=== PATIENT | female | born 1980 | race Two or more races ===

== ENCOUNTER 2025-11-02 08:28 | Emergency (ER) | payer MEDICAID, SELFPAY ==
[2025-11-02 08:29] VITALS: BMI 35.2
[2025-11-02 08:35] VITALS: BP 159/102; PULSE 99; RESP 18; TEMP 37; O2SAT 96
--- NOTE | 2025-11-02 08:42 | XR_ITS ---
November 02, 2025, 0847 hours, comparison June 19, 2017 INDICATIONS: Chest pain beginning 4 days ago. FINDINGS: Suspicious for early right basilar pneumonia Normal heart size Mild thoracic dextroscoliosis IMPRESSION: Suspicious for early right base pneumonia
--- NOTE | 2025-11-02 08:45 | PD.EDURI ---
Upper Respiratory Inf. RME/HPI General Chief Complaint: Flu Like Symptoms Stated Complaint: COUGH & SORE THROAT X1WK, L UPPER BACK PAINX3 DAYS Time Seen by Provider: 11/02/25 08:44 Source: patient Arrival date/time: 11/02/25 08:28 45-year-old female with a history of hypertension, hyperlipidemia, hypothyroidism, presents to the emergency room with a chief complaint of left-sided thoracic back pain and a cough x 1 week Mode of arrival: ambulatory Limitations: no limitations Related Data Home Medications ?Medication ?Instructions ?Recorded ?Confirmed lamotrigine 200 mg disintegrating 200 mg PO DAILY 08/27/18 08/24/24 tablet amlodipine 2.5 mg tablet 2.5 mg PO QDAY 08/24/24 08/24/24 atorvastatin 20 mg tablet 20 mg PO QDAY 08/24/24 08/24/24 clonazepam 0.5 mg tablet 0.25 mg PO BID 08/24/24 08/24/24 ergocalciferol (vitamin D2) 1,250 1,250 mcg PO QWEEK 08/24/24 08/24/24 mcg (50,000 unit) capsule (Vitamin D2) levetiracetam 750 mg tablet 750 mg PO BID 08/24/24 08/24/24 meloxicam 15 mg tablet 15 mg PO QDAY 08/24/24 08/24/24 metformin 1,000 mg tablet 1,000 mg PO BID 08/24/24 08/24/24 semaglutide 1 mg/dose (4 mg/3 mL) 1 mg subcut QWEEK 08/24/24 08/24/24 subcutaneous pen injector (Ozempic) Previous Rx's ?Medication ?Instructions ?Recorded albuterol sulfate 90 mcg/actuation 2 puff inhalation Q6H PRN 11/02/25 aerosol inhaler (Ventolin HFA) shortness of breath or wheezing #6.7 grams amoxicillin 875 mg-potassium 1 tab PO BID 7 days #14 tabs 11/02/25 clavulanate 125 mg tablet Allergies Allergy/AdvReac Type Severity Reaction Status Date / Time No Known Allergies Allergy Verified 11/02/25 08:31 Review of Systems Review of Systems Systems Reviewed: All systems reviewed, normal except as documented Constitutional Constitutional: Reports system reviewed and no additional complaints, except as documented, Denies fatigue, Denies fever(s), Denies headache(s) and Denies weakness Eyes Eyes: Reports system reviewed and no additional complaints, except as documented, Denies blurry vision and Denies change in vision ENT Ears, Nose, Mouth, and Throat: Reports system reviewed and no additional complaints, except as documented, Denies otalgia, Denies headache(s), Denies nasal congestion, Denies throat swelling and Denies vertigo Cardiovascular Cardiovascular: Reports system reviewed and no additional complaints, except as documented, Denies chest pain, Reports dyspnea and Denies dyspnea on exertion Respiratory Respiratory: Reports system reviewed and no additional complaints, except as documented, Denies chest congestion, Reports cough, Reports dyspnea, Denies dyspnea on exertion and Denies wheezing Gastrointestinal Gastrointestinal: Reports system reviewed and no additional complaints, except as documented, Denies abdominal pain, Denies cramping, Denies nausea and Denies vomiting Genitourinary Genitourinary: Reports system reviewed and no additional complaints, except as documented Musculoskeletal Musculoskeletal: Reports system reviewed and no additional complaints, except as documented and Denies back pain Integumentary/Breasts Skin/Breast: Reports system reviewed and no additional complaints, except as documented and Denies wounds Neurologic Neurologic: Reports system reviewed and no additional complaints, except as documented, Denies confusion, Denies headache(s), Denies lack of coordination, Denies vertigo and Denies weakness Psychiatric Psychiatric: Reports system reviewed and no additional complaints, except as documented, Denies anxiety, Denies confusion, Denies depression, Denies paranoia, Denies suicidal ideation and Denies tactile hallucinations Endocrine Endocrine: Reports system reviewed and no additional complaints, except as documented and Denies fatigue Hematologic/Lymphatic Hematologic/Lymphatic: Reports system reviewed and no additional complaints, except as documented and Denies lymphadenopathy Allergic/Immunologic Allergic/Immunologic: Reports system reviewed and no additional complaints, except as documented, Denies throat swelling, Denies urticaria and Denies wheezing Past Medical History Past Medical History NEUROLOGIC: Positive Neurological Disorders, Seizures and Epilepsy (medicated, last seizure 1 week ago) CARDIAC: Positive Cardiac Disorders (states has been having chest pressure, last a month ago), Hypercholesterolemia and Hypertension; Negative Congestive Heart Failure RESPIRATORY: Negative Chronic Obstructive Pulmonary Disease (COPD) or Tuberculosis GASTROINTESTINAL: Negative Gastrointestinal Disorders GENITOURINARY: Negative Genitourinary Disorders or Renal Disease REPRODUCTIVE: Positive Previous Pregnancies; Negative Breast Cancer MUSCULOSKELETAL: Negative Musculoskeletal Disorders or Bone Cancer ENDOCRINE: Positive Endocrine Disorders and Diabetes Mellitus Type 2; Negative Diabetes Mellitus Type 1 HEMATOLOGIC: Negative Blood Disorders PSYCHO/SOCIAL: Positive Depression and Anxiety OTHER HISTORY: Positive Shingles and Chicken Pox; Negative Hospitalization, Autoimmune Disease, Blood Transfusions, Blood Transfusion Reaction, Anesthesia Reactions, Cancer, Breast Cancer or Cervical Cancer Family History FAMILY HISTORY: Positive Family Cardiac Disorders and Family Cancer; Negative Family Psychiatric Problems, Family Respiratory Disorders, Family Gastrointestinal Problems, Family Surgery or Family Anesthesia Reaction Surgical History SURGICAL: Positive Tubal Ligation and Section (x2) Social History SMOKING STATUS: Never smoker SECOND HAND EXPOSURE: No ED Exam General Limitations: Present no limitations General appearance: Present alert and in no apparent distress Head Head exam: Present atraumatic Eye Eye exam: Present normal appearance, PERRL and EOMI ENT ENT exam: Present normal exam, normal oropharynx and mucous membranes moist Neck Neck exam: Present normal inspection, full ROM and trachea midline Chest Chest inspection: Present normal inspection and symmetric chest wall rise Respiratory Respiratory exam: Present normal lung sounds bilaterally; Absent respiratory distress, wheezes, stridor, accessory muscle use or prolonged expiratory phase Cardiovascular Cardiovascular exam: Present regular rate, normal rhythm and normal heart sounds Abdominal Exam Abdominal exam: Present soft and normal bowel sounds Extremities Exam Extremities exam: Present normal inspection and full ROM Back Exam Back exam: Present normal inspection and full ROM Neurological Exam Neurological exam: Present alert, oriented X3 and CN II-XII intact Psychiatric Psychiatric exam: Present normal affect and normal mood Skin Skin exam: Present warm, dry, intact and normal color Course Quality Measures none Orders Category Date Time Status XR chest 1V portable Stat Exams 11/02/25 08:42 Completed Vital Signs Vital signs: Vital Signs Temperature 98.6 F 11/02/25 08:35 Pulse Rate 99 11/02/25 08:35 Respiratory Rate 18 11/02/25 08:35 Blood Pressure 159/102 H 11/02/25 08:35 Pulse Oximetry (%) 96 11/02/25 08:35 Oxygen Delivery Method Room Air 11/02/25 08:35 Upper Respiratory Infection MDM Narrative MDM Narrative:: 45-year-old female with a history of hypertension, hyperlipidemia, hypothyroidism, presents to the emergency room with a chief complaint of left-sided thoracic back pain and a cough x 1 week Patient is hemodynamically stable and in no apparent distress. Patient is not tachypneic not tachycardic and afebrile. Her O2 saturation is 96% on room air Physical examination shows clear bilateral lung sounds. The patient is having some left-sided thoracic pain that radiates to the ribs X-ray was completed of the chest and showed early pneumonia Antibiotics are sent to the patient's pharmacy Patient was discharged and educated to follow-up with primary care provider in the next 24 to 48 hours and return to the emergency room for any evidence of worsening signs or symptoms Patient data External records reviewed:: [facility] previous records Clinical information provided by:: patient Social determinants that could affect healthcare access:: none Patient has the following chronic illnesses:: No chronic illness How is presenting disease/condition affected by chronic disease/condition?: no chronic disease Evaluation data The following diagnostics were reviewed and interpreted by me:: lab results and radiology exam(s) Lab and/or radiology exams considered but not ordered:: Labs and radiology exams considered and ordered Interpretation Summary: Chest [id number]: Suspicious for early right basilar pneumonia Normal heart size Mild thoracic dextroscoliosis IMPRESSION: Suspicious for early right base pneumonia Medications / Prescriptions Medications or Prescriptions considered but not ordered:: Rx given Medication administrations:: Rx given Consultations Consultation(s) initiated? (list below): No Diagnosis Upper Respiratory Differential Diagnosis: upper respiratory infection, viral infection, influenza and other (Community-acquired pneumonia) Most likely diagnosis given after review of the tests above:: Community-acquired pneumonia Admission Indicated Admission indicated?: not indicated Admission Request Was there a request for admission?: No Disposition Plan Disposition Plan: Discharge Discharge Attestation Discharge Attestation: The patient and all family members were given an opportunity to ask questions and understood the discharge instructions. Discharge instructions specifically effects, indications for sooner follow up or return to the emergency department, and the expected course of current diagnosis. Patient condition: Stable Discharge Plan Plan Patient Disposition: HOME (Self Care) Discharge Disposition comment: Stable Prescriptions/Referrals Prescriptions/Med Rec: New albuterol sulfate [Ventolin HFA] 90 mcg/actuation HFA aerosol inhaler 2 puff inhalation Q6H PRN (Reason: shortness of breath or wheezing) Qty: 6.7 0RF amoxicillin-pot clavulanate 875-125 mg tablet 1 tab PO BID 7 Days Qty: 14 0RF No Action lamotrigine 200 mg Tablet,Disintegrating 200 mg PO DAILY atorvastatin 20 mg Tablet 20 mg PO QDAY meloxicam 15 mg Tablet 15 mg PO QDAY clonazepam 0.5 mg Tablet 0.25 mg PO BID amlodipine 2.5 mg Tablet 2.5 mg PO QDAY metformin 1,000 mg Tablet 1,000 mg PO BID levetiracetam 750 mg Tablet 750 mg PO BID ergocalciferol (vitamin D2) [Vitamin D2] 1,250 mcg (50,000 unit) Capsule 1,250 mcg PO QWEEK Ozempic 1 mg/dose (4 mg/3 mL) Pen Injector 1 mg SUBCUT QWEEK Referrals: Leny Art PA-C [Primary Care Provider, Family Practice] - In 1 week Problem List Clinical Impression: Community acquired pneumonia Patient/Caregiver Discharge Instructions Education Materials: What Is Pneumonia?, Treating Pneumonia, ED Pneumonia (Adult) Additional Instructions: Please follow-up with your primary care provider in the next 24 to 48 hours Your x-ray showed early pneumonia Antibiotics are sent to your pharmacy please pick them up and take them as indicated For any evidence of worsening signs or symptoms return to the emergency room immediately Print Language: Uzbek Stand Alone Forms: [facility] Award Info., Patient Portal Info Letter
== END 2025-11-02 10:33 | disposition home or self-care (01) ==
PROVIDERS: Emergency Provider Nurse Practitioner Family; PCP Physician Assistant
DX: J18.9 Pneumonia, unspecified organism (principal)
CPT/HCPCS: 71045; 99282

== ENCOUNTER 2025-11-25 12:26 | Emergency (ER) | payer MEDICAID, SELFPAY ==
--- NOTE | 2025-11-25 12:37 | EKG_ITS ---
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
[2025-11-25 13:05] VITALS: BP 148/91; PULSE 95; RESP 18; TEMP 36.8; O2SAT 99; BMI 32.8
--- NOTE | 2025-11-25 13:06 | XR_ITS ---
EXAMINATION: PA chest single view TECHNIQUE: Upright PA chest single view Date and time: November 25, 2025, 1317 hours, comparison November 02, 2025 INDICATIONS: Chest pain right-sided back pain beginning 5 days ago. FINDINGS: Mild prominence left ventricle Suspicious for mild pneumonia medial right base No pulmonary edema. Osseous structures are intact IMPRESSION: Suspicious for early right base pneumonia
--- NOTE | 2025-11-25 13:07 | PD.EDCHEST ---
ED Chest Pain RME/HPI General Chief Complaint: Chest Pain Stated Complaint: RIGHT SIDED BACK PAIN, CHEST PAIN X5 DAYS Time Seen by Provider: 11/25/25 13:02 Arrival date/time: 11/25/25 12:26 This is a 45-year-old female who comes into the emergency room with complaints of chest pain and shortness of breath for the past 5 days. Patient states she was recently diagnosed with pneumonia to the left side and does not know if the chest pain is worsening pneumonia or if it something else. Patient has a history of seizures, high blood pressure, hyperlipidemia, anxiety, diabetes. Patient denies fever or chills. Patient states that she has a cough sometimes. Patient denies sick contacts at home. Related Data Home Medications ?Medication ?Instructions ?Recorded ?Confirmed lamotrigine 200 mg disintegrating 200 mg PO DAILY 08/27/18 08/24/24 tablet amlodipine 2.5 mg tablet 2.5 mg PO QDAY 08/24/24 08/24/24 atorvastatin 20 mg tablet 20 mg PO QDAY 08/24/24 08/24/24 clonazepam 0.5 mg tablet 0.25 mg PO BID 08/24/24 08/24/24 ergocalciferol (vitamin D2) 1,250 1,250 mcg PO QWEEK 08/24/24 08/24/24 mcg (50,000 unit) capsule (Vitamin D2) levetiracetam 750 mg tablet 750 mg PO BID 08/24/24 08/24/24 meloxicam 15 mg tablet 15 mg PO QDAY 08/24/24 08/24/24 metformin 1,000 mg tablet 1,000 mg PO BID 08/24/24 08/24/24 semaglutide 1 mg/dose (4 mg/3 mL) 1 mg subcut QWEEK 08/24/24 08/24/24 subcutaneous pen injector (Ozempic) Previous Rx's ?Medication ?Instructions ?Recorded albuterol sulfate 90 mcg/actuation 2 puff inhalation Q6H PRN 11/02/25 aerosol inhaler (Ventolin HFA) shortness of breath or wheezing #6.7 grams Allergies Allergy/AdvReac Type Severity Reaction Status Date / Time No Known Allergies Allergy Verified 11/25/25 12:30 Review of Systems Review of Systems Systems Reviewed: All systems reviewed, normal except as documented Past Medical History Past Medical History NEUROLOGIC: Positive Neurological Disorders, Seizures and Epilepsy (medicated, last seizure 1 week ago) CARDIAC: Positive Cardiac Disorders (states has been having chest pressure, last a month ago), Hypercholesterolemia and Hypertension; Negative Congestive Heart Failure RESPIRATORY: Negative Chronic Obstructive Pulmonary Disease (COPD) or Tuberculosis GASTROINTESTINAL: Negative Gastrointestinal Disorders GENITOURINARY: Negative Genitourinary Disorders or Renal Disease REPRODUCTIVE: Positive Previous Pregnancies; Negative Breast Cancer MUSCULOSKELETAL: Negative Musculoskeletal Disorders or Bone Cancer ENDOCRINE: Positive Endocrine Disorders and Diabetes Mellitus Type 2; Negative Diabetes Mellitus Type 1 HEMATOLOGIC: Negative Blood Disorders PSYCHO/SOCIAL: Positive Depression and Anxiety OTHER HISTORY: Positive Shingles and Chicken Pox; Negative Hospitalization, Autoimmune Disease, Blood Transfusions, Blood Transfusion Reaction, Anesthesia Reactions, Cancer, Breast Cancer or Cervical Cancer Family History FAMILY HISTORY: Positive Family Cardiac Disorders and Family Cancer; Negative Family Psychiatric Problems, Family Respiratory Disorders, Family Gastrointestinal Problems, Family Surgery or Family Anesthesia Reaction Surgical History SURGICAL: Positive Tubal Ligation and Section (x2) Social History SMOKING STATUS: Never smoker SECOND HAND EXPOSURE: No ED Exam Narrative Physical exam: VITAL SIGNS: Reviewed. GENERAL APPEARANCE: Alert and interactive, follows commands, no acute distress HEAD AND FACE: Non-traumatic. ENT: PERRL, conjuctiva pink and clear, eyelid no trauma, Mucous membrane moist. NECK: Supple, nontender, no nuchal rigidity. CHEST: No tenderness, no crepitus, no paradoxical movement, no retractions. LUNGS: breathing even and unlabored HEART: Regular rate, cap refill less than 2 seconds ABDOMEN: Soft, nondistended, no guarding, nontender, no rebound, no masses, NEUROLOGICAL: Gross motor function intact sensory function intact, Appropriate for age. MUSCULOSKELETAL: low back nontender, full range of motion. no midline tenderness, no meningismus, no step offs EXTREMITIES: No redness no swelling no skin breakdown on bilateral foot and leg. Distal neurovascular status intact bilateral foot SKIN: Color pink, dry Course Quality Measures none Orders Category Date Time Status EKG (ED ONLY) *Do not use* NOW Care 11/25/25 12:37 Completed EKG (ED Only) Stat Exams 11/25/25 12:37 Draft XR chest 1V Stat Exams 11/25/25 13:06 Completed BNP [B-Type Natriuretic Peptide] Stat Lab 11/25/25 13:33 Completed CBC Stat Lab 11/25/25 13:33 Completed Comprehensive Metabolic Panel Stat Lab 12/28/25 13:33 Completed Troponin I Stat Lab 11/25/25 13:33 Completed Urinalysis, C/S if Indicated Stat Lab 11/25/25 13:30 Completed Urine Culture Stat Lab 11/25/25 13:30 Completed HYDROcodone*/APAP 5/325 [[place] 5/325] Med 11/25/25 17:21 Discontinued 1 tab PO X1 ONE Ibuprofen Tab [Motrin Tab] Med 11/25/25 17:18 Discontinued 800 mg PO X1 ONE Ondansetron Odt [Zofran Odt] Med 11/25/25 17:21 Discontinued 4 mg PO X1 ONE cefTRIAXone [Rocephin] 1,000 mg Med 11/25/25 17:18 Discontinued Lidocaine 1% Pf Vial 5ml [Xylocaine 1% Pf 5 ml] 2.1 ml IM X1 Vital Signs Vital signs: Vital Signs Temperature 98.3 F 11/25/25 13:05 Pulse Rate 95 11/25/25 13:05 Respiratory Rate 18 11/25/25 13:05 Blood Pressure 148/91 H 11/25/25 13:05 Pulse Oximetry (%) 99 11/25/25 13:05 Oxygen Delivery Method Room Air 11/25/25 13:05 PROCEDURES: EKG Interpretation #1: Date of EK11/25/25 Time of EK:09 Rate: 94 Interpretation: Interpreted by me ( Sinus rhythm with a right branch block. Patient previously noted bundle branch block.) EKG Impression: No ectopy and Normal intervals Chest Pain MDM Narrative MDM Narrative:: Labs reviewed WBC 6.8 hemoglobin hematocrit 12.1 and 39.5, mcv 74 BMP, with a glucose of 291 also LFTs within normal limits. Troponin negative BNP noted. Urine positive for leukocyte esterase and some WBCs of 21. Suspicious for possible UTI. Patient's x-ray shows Chest x ray: FINDINGS: Mild prominence left ventricle Suspicious for mild pneumonia medial right base No pulmonary edema. Osseous structures are intact IMPRESSION: Suspicious for early right base pneumonia Will treat patient with Rocephin. Will patient will be sent home with antibiotics to cover both. Patient told to come back to the emergency room symptoms change or worsen. Patient verbalized understanding dragon dictation: Although this document has been carefully reviewed, there may still be some phonetic and other typographical errors. These errors are purely grammatical due to imperfections in the software program and should not be construed in any way to compromise the substance of the patient's medical care during this visit. Patient data External records reviewed:: [facility] previous records Clinical information provided by:: patient Social determinants that could affect healthcare access:: none Patient has the following chronic illnesses:: See note How is presenting disease/condition affected by chronic disease/condition?: no chronic disease Evaluation data The following diagnostics were reviewed and interpreted by me:: lab results and radiology exam(s) Lab and/or radiology exams considered but not ordered:: None Interpretation Summary: See note Medications / Prescriptions Medications or Prescriptions considered but not ordered:: None Medication administrations:: Medication Administration History Discontinued Medications Hydrocodone Bitart/Acetaminophen (Hydrocodone/Apap 5/325 Tablet) 1 tab PO X1 ONE Stop: 11/25/25 17:22 Last Admin: 11/25/25 17:44 Dose: Not Given Documented By: OA Non-Admin Reason: Discontinued Ceftriaxone Sodium 1,000 mg/ (Lidocaine HCl 2.1 ml) 0 mg IM X1 ONE Stop: 11/25/25 17:19 Last Admin: 11/25/25 17:43 Dose: 2.1 mg Documented By: OA Ibuprofen (Ibuprofen Tab 400 Mg Tablet) 800 mg PO X1 ONE Stop: 11/25/25 17:19 Last Admin: 11/25/25 17:44 Dose: 800 mg Documented By: OA Ondansetron HCl (Ondansetron Odt 4 Mg Tabrap) 4 mg PO X1 ONE; Protocol Stop: 11/25/25 17:22 Last Admin: 11/25/25 17:44 Dose: Not Given Documented By: OA Non-Admin Reason: Discontinued See [facility] Consultations Consultation(s) initiated? (list below): No Diagnosis Chest Pain Differential Diagnosis: pneumothorax, atypical chest pain, chest pain and other (Pneumonia) Most likely diagnosis given after review of the tests above:: Pneumonia Admission Indicated Admission indicated?: not indicated Admission Request Was there a request for admission?: No Disposition Plan Disposition Plan: Discharge Discharge Attestation Discharge Attestation: The patient and all family members were given an opportunity to ask questions and understood the discharge instructions. Discharge instructions specifically effects, indications for sooner follow up or return to the emergency department, and the expected course of current diagnosis. Patient condition: Stable Discharge Plan Plan Patient Disposition: HOME (Self Care) Patient condition on transfer: Stable Prescriptions/Referrals Prescriptions/Med Rec: No Action lamotrigine 200 mg Tablet,Disintegrating 200 mg PO DAILY atorvastatin 20 mg Tablet 20 mg PO QDAY meloxicam 15 mg Tablet 15 mg PO QDAY clonazepam 0.5 mg Tablet 0.25 mg PO BID amlodipine 2.5 mg Tablet 2.5 mg PO QDAY metformin 1,000 mg Tablet 1,000 mg PO BID levetiracetam 750 mg Tablet 750 mg PO BID ergocalciferol (vitamin D2) [Vitamin D2] 1,250 mcg (50,000 unit) Capsule 1,250 mcg PO QWEEK Ozempic 1 mg/dose (4 mg/3 mL) Pen Injector 1 mg SUBCUT QWEEK albuterol sulfate [Ventolin HFA] 90 mcg/actuation HFA aerosol inhaler 2 puff inhalation Q6H PRN (Reason: shortness of breath or wheezing) Qty: 6.7 0RF Referrals: Leny Art PA-C [Primary Care Provider, Family Practice] - In 1 week Problem List Clinical Impression: UTI (urinary tract infection), Pneumonia Patient/Caregiver Discharge Instructions Discharge Activity: activity as tolerated Education Materials: ED Pneumonia (Adult), ED CYSTITIS Female Adult Additional Instructions: Follow up with primary provider in 1-2 days. Come back to ED if symptoms change or worsen Print Language: Lithuanian Stand Alone Forms: [employer] Award Info., Patient Portal Info Letter PA/PRANAY Supervising Physician PA/PRANAY Supervising Physician: [email or web address]
[2025-11-25 13:49] LABS: Basophils # (Auto) 0.0 Thou/mm3 (0.0-0.2); Basophils % (Auto) 0 % (0-2.5); Eosinophils # (Auto) 0.1 Thou/mm3 (0.0-0.5); Eosinophils % (Auto) 1 % (0-10); Hematocrit 39.5 % (36.0-46.0); Hemoglobin 12.1 g/dL (12.0-16.0); Immature Granulocytes Auto 0.02 Thou/mm3 (0.00-0.00); Lymphocytes # (Auto) 2.3 Thou/mm3 (1.0-4.8); Lymphocytes % (Auto) 34 % (10-50); Mean Corpuscular HGB Conc 30.6 g/dl (31.0-37.0); Mean Corpuscular Hemoglobin 22.7 pg (25.0-35.0); Mean Corpuscular Volume 74 fL (80-100); Monocytes # (Auto) 0.5 Thou/mm3 (0.0-0.8); Monocytes % (Auto) 7 % (0-12); Neutrophils # (Auto) 3.9 Thou/mm3 (1.8-7.7); Neutrophils % (Auto) 58 % (37-80); Nucleated Red Blood Cell # 0.00 Thou/mm3 (0.00-0.00); Nucleated Red Blood Cell % 0 /100 WBC (0); Platelet Count 228 Thou/mm3 (140-440); RDW Standard Deviation 41.3 fL (36.4-46.3); Red Blood Count 5.33 Miln/mm3 (4.00-5.20); White Blood Count 6.8 Thou/mm3 (3.6-11.0)
[2025-11-25 14:04] LABS: Collection Type, Urine Voided
[2025-11-25 14:08] LABS: B-Type Natriuretic Peptide < 20 pg/mL (0-100)
[2025-11-25 14:21] LABS: Alanine Aminotransferase 8 U/L (10-49); Albumin, Serum 4.5 gm/dL (3.5-5.0); Albumin/Globulin Ratio 1.4 (1.2-2.2); Alkaline Phosphatase 90 U/L (46-116); Anion Gap 11 (7-16); Aspartate Amino Transferase 14 U/L (0-34); BUN/Creatinine Ratio 8 Ratio (12-20); Bilirubin,Total 0.4 mg/dL (0.3-1.2); Blood Urea Nitrogen 6 mg/dL (9-23); Calcium 9.2 mg/dL (8.3-10.6); Calcium (Corrected) 9.2 mg/dL (8.5-10.1); Carbon Dioxide 27.7 mMol/L (20.0-31.0); Chloride 99 mMol/L (98-107); Creatinine (Component) 0.8 mg/dL (0.6-1.3); Estimated Creatinine Clearance 106.4 mL/min (>60); Globulin 3.3 gm/dL (2.3-3.5); Glucose 291 mg/dL (74-106); Osmolality,Calculated 284 (275-295); Potassium 3.7 mMol/L (3.4-5.1); Sodium 138 mMol/L (136-145); Total Protein 7.8 gm/dL (5.7-8.2); Troponin I < 0.002 ng/mL (0.0-0.045); eGFR > 60 See Note
[2025-11-25 14:47] LABS: Bacteria,Urine Rare; Bilirubin,Urine Negative (Negative); Blood,Urine Negative (Negative); Clarity,Urine Clear (Clear/Hazy); Color,Urine Colorless (Lt Yel-Yel); Glucose, Urine 4+ (Negative); Ketones,Urine Negative (Negative); Leukocyte Esterase,Urine Positive (Negative); Nitrite,Urine Negative (Negative); PH,Urine 6.5 (5.0-7.0); Protein,Urine Negative (Neg - Trace); RBC,Urine < 1 /hpf (0-3); Specific Gravity,Urine 1.015 (1.001-1.035); Squamous Epithelial Cell,Urine 5 /hpf (0-5); Transitional Epi Cells,Urine < 1 /hpf (0-5); Urobilinogen,Urine Negative mg/dL (0.0-1.0); WBC,Urine 21 /hpf (0-5)
[2025-11-25 14:50] LABS: Culture Indicated,Urine Yes
[2025-11-25] MEDS: IBUPROFEN TAB 400 MG TABLET 800 MG PO (17:44)
== END 2025-11-25 17:45 | disposition home or self-care (01) ==
PROVIDERS: Nurse Practitioner Family; Emergency Provider Emergency Medicine; PCP Physician Assistant
DX: J18.9 Pneumonia, unspecified organism (principal); N39.0 Urinary tract infection, site not specified; I45.10 Unspecified right bundle-branch block; I10 Essential (primary) hypertension; E78.00 Pure hypercholesterolemia, unspecified
CPT/HCPCS: 36415; 71045; 80053; 81001; 83880; 84484; 85025; 87077; 87086; 87186; 93005; 96372; 99283; J0696; J3490; A9270